=== PATIENT | female | born 1985 | race Caucasian/White ===

== ENCOUNTER 2023-06-02 16:17 | Emergency (ER) | payer MEDICAID ==
[~2023-06-02] VITALS: Ht 149.9 cm; Wt 46.4 kg
[2023-06-02 16:30] VITALS: BP 125/80; PULSE 101; RESP 20; TEMP 97.9; O2SAT 97
[2023-06-02 17:55] VITALS: TEMP 98.1; O2SAT 97
[2023-06-02] MEDS ORDERED: ONDANSETRON 4 MG/2 ML VIAL IVP ONE (18:15)
[2023-06-02] MEDS ORDERED: NACL 0.9% 1,000 ML IV SCH (18:15)
[2023-06-02] MEDS ORDERED: NACL 0.9% 1,000 ML IV ONE (18:30)
[2023-06-02 18:33] LABS: BASOPHILS # (AUTO) 0.1 K/uL (0.00-0.22); BASOPHILS % (AUTO) 0.5 % (0.0-2.0); EOSINOPHILS # (AUTO) 0.1 K/uL (0-0.4); EOSINOPHILS % (AUTO) 0.6 % (0.0-4.0); HEMATOCRIT 33.7 % (36-48); HEMOGLOBIN 10.7 g/dL (12.0-16.0); LYMPHOCYTES # (AUTO) 2.7 K/uL (2.5-16.5); LYMPHOCYTES % (AUTO) 20.9 % (20.5-51.1); MEAN CORPUSCULAR HEMOGLOBIN 21 pg (27-31); MEAN CORPUSCULAR HGB CONC 32 g/dL (33-37); MEAN CORPUSCULAR VOLUME 64.7 fL (80-94); MONOCYTES # (AUTO) 1.1 K/uL (0.8-1.0); MONOCYTES % (AUTO) 8.6 % (1.7-9.3); NEUTROPHILS # (AUTO) 8.9 K/uL (1.8-7.7); NEUTROPHILS % (AUTO) 69.4 % (42.2-75.2); PLATELET COUNT (AUTO) 429 K/uL (140-450); RED CELL DISTRIBUTION WIDTH 22.6 % (11.6-13.7); WHITE BLOOD COUNT (AUTO) 12.7 K/uL (4.8-10.8)
[2023-06-02 18:51] LABS: ALBUMIN 3.7 g/dL (3.4-5.0); ANION GAP 12.2 (8-16); CALCIUM 8.7 mg/dL (8.5-10.1); CARBON DIOXIDE 27.3 mmol/L (21-32); CREATININE 0.6 mg/dL (0.6-1.3); POTASSIUM 3.5 mmol/L (3.5-5.1); TOTAL BILIRUBIN 0.3 mg/dL (0.0-1.0)
[2023-06-02 18:52] LABS: APPEARANCE,URINE CLEAR (CLEAR); BILIRUBIN,URINE NEGATIVE (NEGATIVE); BLOOD, URINE NEGATIVE (NEGATIVE); COLOR,URINE YELLOW (YELLOW); LEUKOCYTE ESTERASE ,URINE NEGATIVE (NEGATIVE); NITRITE, URINE NEGATIVE (NEGATIVE); PROTEIN,URINE NEGATIVE (NEGATIVE); UGLUCOSE 1+ (NEGATIVE); UROBILINOGEN,URINE 0.2 EU/dL (0.2 - 1)
[2023-06-02 20:26] VITALS: O2SAT 100
[2023-06-02] MEDS ORDERED: METO-485 PO (21:21)
[2023-06-02 21:26] VITALS: BP 117/72; PULSE 80; RESP 14; O2SAT 98
[2023-06-02 21:41] LABS: AMPHETAMINE, URINE NEGATIVE ng/ml (NEG <=1000); BARBITURATE, URINE NEGATIVE ng/ml (NEG <=200); BENZODIAZEPINE, URINE NEGATIVE ng/mL (NEG <=200); CANNABINOID, URINE NEGATIVE ng/mL (NEG <=50); COCAINE, URINE NEGATIVE ng/mL (NEG <=300); OPIATE, URINE NEGATIVE ng/mL (NEG <=2000); PHENCYCLIDINE SCREEN,URINE NEGATIVE ng/mL (NEG <=25)
== END 2023-06-02 21:54 | disposition home or self-care (01) ==
LOC: MED 16:17
DX: O21.0 Mild hyperemesis gravidarum (principal); Z3A.09 9 weeks gestation of pregnancy
CPT/HCPCS: 36415; 80053; 80305; 81003; 83690; 84702; 85025; 96361; 96374; 99285; J2405; J7030

== ENCOUNTER 2023-07-21 20:01 | Emergency (ER) | payer MEDICAID ==
[~2023-07-21] VITALS: Ht 149.9 cm; Wt 48.5 kg
[~2023-07-21 20:01] MED LIST: METO-485 PO
[2023-07-21 20:51] VITALS: BP 123/73; PULSE 100; RESP 17; TEMP 98; O2SAT 98
[2023-07-21 21:31] LABS: APPEARANCE,URINE CLEAR (CLEAR); BILIRUBIN,URINE NEGATIVE (NEGATIVE); BLOOD, URINE NEGATIVE (NEGATIVE); COLOR,URINE YELLOW (YELLOW); LEUKOCYTE ESTERASE ,URINE NEGATIVE (NEGATIVE); NITRITE, URINE NEGATIVE (NEGATIVE); PROTEIN,URINE NEGATIVE (NEGATIVE); UGLUCOSE NEGATIVE (NEGATIVE); UROBILINOGEN,URINE 0.2 EU/dL (0.2 - 1)
== END 2023-07-22 04:45 | disposition left against medical advice (07) ==
LOC: MED 20:01
DX: O21.8 Other vomiting complicating pregnancy (principal); O26.812 Pregnancy related exhaustion and fatigue, second trimester; R53.1 Weakness; R63.0 Anorexia; Z53.21 Procedure and treatment not carried out due to patient leaving prior to being seen by health care provider
CPT/HCPCS: 81003; 81025; 99281

== ENCOUNTER 2023-07-30 11:10 | Emergency (ER) | payer MEDICAID ==
[~2023-07-30] VITALS: Ht 152.4 cm; Wt 63.5 kg
[2023-07-30 11:28] VITALS: BP 135/74; PULSE 115; RESP 20; TEMP 98.7; O2SAT 98
[2023-07-30] MEDS ORDERED: NACL 0.9% 1,000 ML IV SCH (12:25)
[2023-07-30] MEDS ORDERED: ACETAMINOPHEN 325 MG TAB PO ONE (12:40)
[2023-07-30] MEDS ORDERED: LIDOCAINE 5% 1 EA PATCH TP ONE (12:40)
[2023-07-30 12:47] VITALS: O2SAT 98
[2023-07-30 12:54] LABS: BILIRUBIN,URINE NEGATIVE (NEGATIVE); BLOOD, URINE NEGATIVE (NEGATIVE); COLOR,URINE YELLOW (YELLOW); LEUKOCYTE ESTERASE ,URINE 1+ (NEGATIVE); NITRITE, URINE NEGATIVE (NEGATIVE); PH,URINE 6.5 (5.0-9.0); PROTEIN,URINE NEGATIVE (NEGATIVE); UGLUCOSE NEGATIVE (NEGATIVE); UROBILINOGEN,URINE 0.2 EU/dL (0.2 - 1)
[2023-07-30 12:58] LABS: BACTERIA,URINE FEW /HPF (None Seen); RBC,URINE 0-5 /HPF (0-5)
[2023-07-30 12:59] LABS: SQUAMOUS EPITHELIAL CELL,UR 4-10 (MOD) /LPF (0-3 (FEW))
[2023-07-30 13:00] LABS: APPEARANCE,URINE SLIGHTLY HAZY (CLEAR)
[2023-07-30 13:15] LABS: ANION GAP 13.3 (8-16); CALCIUM 8.5 mg/dL (8.5-10.1); CARBON DIOXIDE 22.8 mmol/L (21-32); CREATININE 0.5 mg/dL (0.6-1.3); POTASSIUM 3.1 mmol/L (3.5-5.1)
[2023-07-30 13:22] LABS: ALBUMIN 2.5 g/dL (3.4-5.0); BILIRUBIN,DIRECT 0.1 mg/dL (0.0-0.3); TOTAL BILIRUBIN 0.3 mg/dL (0.0-1.0); TOTAL PROTEIN, SERUM 7.5 g/dL (6.4-8.2)
[2023-07-30 13:42] LABS: BASOPHILS % (AUTO) 0.2 % (0.0-2.0); EOSINOPHILS % (AUTO) 0.4 % (0.0-4.0); HEMATOCRIT 31.7 % (36-48); HEMOGLOBIN 10.3 g/dL (12.0-16.0); LYMPHOCYTES # (AUTO) 1.6 K/uL (2.5-16.5); MEAN CORPUSCULAR HEMOGLOBIN 21 pg (27-31); MEAN CORPUSCULAR HGB CONC 33 g/dL (33-37); MEAN CORPUSCULAR VOLUME 64.1 fL (80-94); MONOCYTES # (AUTO) 0.8 K/uL (0.8-1.0); MONOCYTES % (AUTO) 6.7 % (1.7-9.3); NEUTROPHILS % (AUTO) 79.7 % (42.2-75.2); PLATELET COUNT (AUTO) 483 K/uL (140-450); RED BLOOD CELL COUNT(AUTO) 4.94 MIL/uL (4.20-5.40); RED CELL DISTRIBUTION WIDTH 17.1 % (11.6-13.7); WHITE BLOOD COUNT (AUTO) 12.5 K/uL (4.8-10.8)
[2023-07-30] MEDS ORDERED: ACET-10509 PO (13:44)
[2023-07-30] MEDS ORDERED: CEPH-588 PO (13:44)
[2023-07-30] MEDS ORDERED: LID5T TP (13:44)
[2023-07-30] MEDS ORDERED: POTASSIUM CHLORIDE 20% 40 MEQ/15 ML UDC PO ONE (13:50)
== END 2023-07-30 14:03 | disposition home or self-care (01) ==
LOC: MED 11:10
DX: O23.12 Infections of bladder in pregnancy, second trimester (principal); E87.6 Hypokalemia; Z3A.18 18 weeks gestation of pregnancy
CPT/HCPCS: 36415; 76705; 76815; 80048; 80076; 81001; 81025; 83690; 84702; 85025; 87086; 99284; J7030; Q0092